=== PATIENT | female | born 1950 | race Caucasian/White ===

== ENCOUNTER 2024-07-29 06:30 | Observation (INO) ==
--- NOTE | 2024-07-04 14:40 | PAT Medication Instructions ---
Medication Instructions Date of Service July 04, 2024 Home Medications cephalexin 500 mg capsule 500 mg PO 3XWK clonazepam 1 mg tablet 0.5 mg PO QAM clonazepam 1 mg tablet 1 mg PO BID duloxetine 60 mg capsule,delayed release 60 mg PO BID hydrochlorothiazide 25 mg tablet 25 mg PO QAM lisinopril 40 mg tablet 40 mg PO QAM meloxicam 15 mg tablet 15 mg PO QAM metformin 500 mg tablet 500 mg PO BID pregabalin 100 mg capsule 100 mg PO TID tizanidine 4 mg capsule 4 mg PO QID Spasms tramadol 100 mg tablet 100 mg PO Q6H insulin glargine 100 unit/mL (3 mL) subcutaneous pen (Lantus Solostar U-100 Insulin) 24 unit subcut QAM mirabegron 50 mg tablet,extended release 24 hr (Myrbetriq) 50 mg PO QAM MEDICATION INSTRUCTIONS: Continue as directed cephalexin 500 mg capsule 500 mg PO 3XWK ASK your surgeon for instructions meloxicam 15 mg tablet 15 mg PO QAM DO NOT take the morning of surgery hydrochlorothiazide 25 mg tablet 25 mg PO QAM lisinopril 40 mg tablet 40 mg PO QAM metformin 500 mg tablet 500 mg PO BID mirabegron 50 mg tablet,extended release 24 hr (Myrbetriq) 50 mg PO QAM Take morning of surgery With a small sip of water, OTHERWISE NOTHING TO EAT OR DRINK AFTER MIDNIGHT: clonazepam 1 mg tablet 0.5 mg PO QAM clonazepam 1 mg tablet 1 mg PO BID duloxetine 60 mg capsule,delayed release 60 mg PO BID pregabalin 100 mg capsule 100 mg PO TID tizanidine 4 mg capsule 4 mg PO QID Spasms tramadol 100 mg tablet 100 mg PO Q6H Take evening before surgery clonazepam 1 mg tablet 1 mg PO BID duloxetine 60 mg capsule,delayed release 60 mg PO BID metformin 500 mg tablet 500 mg PO BID pregabalin 100 mg capsule 100 mg PO TID tizanidine 4 mg capsule 4 mg PO QID Spasms tramadol 100 mg tablet 100 mg PO Q6H Insulin Dependent Diabetic Patients * Test your blood sugar the morning of surgery. * If Blood Sugar is GREATER THAN 150, take HALF of your regular dose of: insulin glargine 100 unit/mL (3 mL) subcutaneous pen (Lantus Solostar U-100 Insulin) 24 unit subcut QAM * If Blood Sugar is LESS THAN 150, DO NOT TAKE ANY: insulin glargine 100 unit/mL (3 mL) subcutaneous pen (Lantus Solostar U-100 Insulin) 24 unit subcut QAM Other Notes If you have any questions please call us at [phone] or [phone] or [phone] or [phone]
--- NOTE | 2024-07-12 12:59 | Anesthesiology Consultation ---
Date of Service July 12, 2024 Assessment & Plan (1) Encounter for pre-operative examination: - Check BSG DOS - Infectious disease screening: Per assessment on 07/12/24- No known recent infectious disease contacts or current infectious disease symptoms. - Outpatient joint assessment: Pt currently scheduled for inpatient pathway. If surgeon requests review for outpatient joint pathway, patient is not recommended candidate for outpatient joint program from anesthesia standpoint based on available information. - Abnormal preop testing: Preop labs note low hgb at 9.4. No comparison levels available and no reported anemia history. Preop CXR notes "Ill-defined right paratracheal/suprahilar opacity seen on the PA view favors summation density. A precautionary CT of the chest recommended to further characterize." Note written to PCP regarding anemia/CXR findings- Awaiting response (Dr. Greene/Alonzo). Patient otherwise acceptable risk for surgery. Chart Review Chart Review: Patient seen in Pre Admission Testing Teaching & Discussion Pre-Anesthesia Teaching/Discussion Notes: Instructed NPO after midnight before surgery,except medications with 15 cc of water. Medication instructions provided according to the PAT guidelines. History Surgery Operation Date: 08/05/24 11:00 Proposed Procedures p Left Reverse Total Shoulder Arthroplasty - Santosh Hall, Height/Weight Height: 5 ft 8 in Weight: 100.7 kg Allergies Allergy/AdvReac Type Severity Reaction Status Date / Time No Known Allergies Allergy Verified 07/04/24 09:38 Medications Home Medications Medication Instructions Recorded Confirmed Last Taken cephalexin 500 mg capsule 500 mg PO 3XWK 04/27/24 07/04/24 Unknown clonazepam 1 mg tablet 0.5 mg PO QAM 04/27/24 07/04/24 Unknown clonazepam 1 mg tablet 1 mg PO BID 04/27/24 07/04/24 Unknown duloxetine 60 mg capsule,delayed 60 mg PO BID 04/27/24 07/04/24 Unknown release hydrochlorothiazide 25 mg tablet 25 mg PO QAM 04/27/24 07/04/24 Unknown lisinopril 40 mg tablet 40 mg PO QAM 04/27/24 07/04/24 Unknown meloxicam 15 mg tablet 15 mg PO QAM 04/27/24 07/04/24 Unknown metformin 500 mg tablet 500 mg PO BID 04/27/24 07/04/24 Unknown pregabalin 100 mg capsule 100 mg PO TID 04/27/24 07/04/24 Unknown tizanidine 4 mg capsule 4 mg PO QID Spasms 04/27/24 07/04/24 Unknown tramadol 100 mg tablet 100 mg PO Q6H 04/27/24 07/04/24 Unknown insulin glargine 100 unit/mL (3 24 unit subcut QAM 07/04/24 07/04/24 Unknown mL) subcutaneous pen (Lantus Solostar U-100 Insulin) mirabegron 50 mg tablet,extended 50 mg PO QAM 07/04/24 07/04/24 Unknown release 24 hr (Myrbetriq) Past Medical History Medical History Anxiety Diabetes mellitus, type 2 Hx: UTI (urinary tract infection) Takes preventative med 3x weekly No current issues Hypertension Neuropathy feet/legs Overactive bladder Rotator cuff arthropathy Sleep apnea No device Spinal stenosis Exercise / Class Metabolic Activity III < 4 Walking/Shop/Light housework Past Family History Family History Aunt Diabetes Grandmother Diabetes Past Surgical History Surgical History History of colonoscopy History of hysterectomy History of total hip arthroplasty left History of total knee replacement right Hx of spinal surgery thoracic unsure of exact levels Past Anesthesia History No Hx of Anesthesia Complications and No Family Hx of Anesthesia Complications History of PONV No Hx of PONV and No Hx of Motion Sickness Social History Smoking Status: Never smoker Do You Dip or Chew Tobacco: No Hx Alcohol Use: No Hx Substance Use: No substance use type: does not use Review of Systems Patient denies chest pain, shortness of breath, fever, chills, cough, wheezing, palpitations. Physical Exam Vital Signs BP 100/65 P 74 TEMP 98.1 SP02 96%RA RESP 18 Physical Full cervical extension range of motion. Full TMJ range of motion. TMD 3 finger breaths Mallampati Score III Dentition: intact, upper left side bridge Lungs: clear throughout to auscultation Cardiac: regular rate and rhythm, no murmurs noted Spine: normal Carotid arteries: negative bruit Extremities: no LE edema Lab Results Anesthesia Preop Results Results Anesthesia Widget: WBC 7.96 K/ul (4.8-10.8) 07/12/24 Hgb 9.4 g/dl (12.0-16.0) L 07/12/24 Hct 28.5 % (37.0-47.0) L 07/12/24 Plt 350 K/uL (130-400) 07/12/24 Na 129 mmol/L (136-145) L 07/12/24 K 4.6 mmol/L (3.5-5.1) 07/12/24 Cl 99 mmol/L (98-107) 07/12/24 CO2 23 mmol/L (21-32) 07/12/24 BUN 28 mg/dl (6-23) H 07/12/24 Creat 0.78 mg/dl (0.6-1.2) 07/12/24 Glucose Level 78 mg/dl (70-99(Fasting)) 07/12/24 PT 10.3 Seconds (9.0-12.0) 07/12/24 PTT 28 Seconds (21-31) 07/12/24 INR 0.9 (0.9-1.1) 07/12/24 HA1c 5.2 % (4.5-5.6) 07/12/24 Blood Type A Negative 07/12/24 Antibody Screen NEGATIVE 07/12/24 Testing Electrocardiogram Date: 07/12/24 NSR with sinus arrhythmia at 64bpm. "Normal ECG" Chest X-Ray Date: 07/12/24 FINDINGS: Partially imaged thoracolumbar spinal fusion hardware. The bones appear grossly intact. Chronic lower thoracic compression deformity. Cardiomediastinal and hilar silhouettes are within normal limits. No pneumothorax, pleural effusion or lobar airspace consolidation. Ill-defined right paratracheal/upper lung opacities seen best on the PA view. Bones of the chest appear grossly intact. IMPRESSION: Ill-defined right paratracheal/suprahilar opacity seen on the PA view favors summation density. A precautionary CT of the chest recommended to further characterize.
--- NOTE | 2024-07-29 06:28 | History & Physical Bridge Note ---
Date of Service July 29, 2024 History & Physical Bridge Note I have examined the patient, reviewed the History & Physical and in the interval since the performance of the History & Physical I have noted the following changes of clinical significance: no changes noted
[~2024-07-29 06:30] MED LIST: BUPIVACAINE 0.5 % 5 MG/1 ML PF 10ML VIAL ONE
[2024-07-29] MEDS ORDERED: PROPOFOL IV EMULSION 10 MG/ML 20 ML VIAL IV ONE (07:08)
[2024-07-29] MEDS ORDERED: MIDAZOLAM HCL 1 MG/ML 2ML VIAL ONE (07:08)
[2024-07-29] MEDS ORDERED: LIDOCAINE 2% 2 ML VIAL/AMP(20MG/ML) INFIL ONE (07:08)
[2024-07-29] MEDS ORDERED: fentaNYL citrate PF 100 MCG/2 ML VIAL ONE (07:08)
[2024-07-29] MEDS: ACETAMINOPHEN 500 MG TAB PO SCH ×2 (07:10→14:43)
[2024-07-29] MEDS: LR 15ML/HR IV SCH (07:10)
[2024-07-29] MEDS ORDERED: PHENYLEPHRINE 100MCG/ML 5ML SYR ONE (07:10)
[2024-07-29] MEDS: GABAPENTIN 300 MG CAP PO SCH (07:11)
[2024-07-29] MEDS: FAMOTIDINE 20 MG TAB PO SCH (07:11)
[2024-07-29] MEDS: LR 60ML/HR IV SCH (07:13)
[2024-07-29] MEDS ORDERED: fentaNYL citrate PF 100 MCG/2 ML VIAL IV PRN (07:16)
[2024-07-29] MEDS ORDERED: ATROPINE SULFATE 0.1 MG/ML 10ML SYR IV PRN (07:16)
[2024-07-29] MEDS ORDERED: ePHEDrine sulfate 50 MG/ML AMP IV PRN (07:16)
[2024-07-29] MEDS ORDERED: ONDANSETRON INJ 2 MG/ML 2 ML VIAL IV PRN ×2 (07:16→11:52)
[2024-07-29] MEDS: dexAMETHasone**PF** 10 MG/ML VIAL IV SCH (07:34)
[2024-07-29] MEDS: TRANEXAMIC ACID 1,000 MG **IV Pre-op IV SCH (07:39)
[2024-07-29] MEDS: ceFAZolin 2000MG 2,000 MG/15 ML SYR IV SCH (07:55)
[2024-07-29] MEDS ORDERED: GLYCOPYRROLATE 0.2 MG/ML VIAL ONE (08:19)
[2024-07-29] MEDS ORDERED: ePHEDrine sulfate 50 MG/5 ML SYR ONE (08:19)
[2024-07-29] MEDS ORDERED: ONDANSETRON INJ 2 MG/ML 2 ML VIAL ONE (08:30)
[2024-07-29] MEDS: ORTHO JOINT ANESTHETIC ONE (08:34)
[2024-07-29] MEDS: ROPIV 0.5% 246mg, Ketorolac 30mg, EPINEPHrine 0.5mg in NSS INFIL SCH (09:00)
[2024-07-29] MEDS: TRANEXAMIC ACID 1,000 MG **IV Intra-op IV SCH (09:08)
--- NOTE | 2024-07-29 09:14 | Operative Report ---
PG Post Operative Report Pre & Post Diagnosis Operation Date: 07/29/24 08:00 Pre-Op Diagnosis: rotator cuff arthropathy of left shoulder with tendinopathy long head of the biceps tendon Post-Op Diagnosis: rotator cuff arthropathy of left shoulder with tendinopathy long head of the biceps tendon I identified the patient and participated in the time-out.: Yes Procedure Operation Date: 07/29/24 08:00 Actual Procedures p Left Reverse Total Shoulder Arthroplasty(Left) with tendinopathy long head of the biceps tendon as a distinct and separate procedure (modifier 59)- Santosh Hall DO Surgeon Santosh Hall DO Fire Eater Silvio Brito PA-C Estimated Blood Loss 150 Findings Consistent with Post-Op Diagnosis Specimens Left humeral head Description of Procedure A CPT code modifier 59: The long head of the biceps tendon was enlarged and inflamed consistent with tendinopathy. A tenodesis was opted. This was a separate and distinct portion of the procedure. For these reasons, a CPT code modifier 59 will be added to this case. Implants used: I used a [employer] Comprehensive reverse total shoulder arthroplasty system with a size 12 press fit micro humeral stem, a +5 thickness humeral tray and a +3 retentive humeral bearing, a 25 mm baseplate with 4 peripheral locking screws, a nd a size 36 mm eccentric glenosphere. Stefanie arrived at [facility] for the above procedure. She was seen in the preoperative holding area and the operative extremity was identified and si gned. She was given a preoperative antibiotic, TXA, and an interscalene nerve block. She was taken back to the operating room, laid on table in supine position, and put under general anesthesia. She was then put into the beachchair position. The shoulder was then prepped and draped in sterile fashion. A timeout was done and the patient and the operative extremity was properly identified. A deltopectoral approach was used. Dissection was taken down through the fascia and the deltoid was retracted laterally and the conjoined tendon was retracted medially. The anterior shoulder was exposed. The biceps groove was opened up and the biceps tendon was examined extensively. The biceps tendon demonstrated enlargement and inflammatory changes consistent with longstanding inflammation in the context of osteoarthritis and cuff arthropathy. The long head of the biceps tendon was then tenodesed to the upper border of the pectoralis major. This was a separate and distinct portion of the procedure. The subscapularis was then directly released off the lesser tuberosity with a peel technique. The inferior capsule was released and the humeral head was dislocated. A canal finding reamer was sent down the center of the humeral canal. Sequential reaming up to a size 12 reamer was done. Off that reamer, a proximal humeral resection guide was placed. The proximal humerus was resected at 135 of inclination and 25 of retroversion. Osteophytes were then removed and the glenoid was exposed. Time was spent doing a complete capsular and labral release. The glenoid guide was then placed in the inferior aspect of the glenoid. A 3.2 mm Steinmann pin was then placed into the glenoid vault at 10 of inclination. The glenoid baseplate was then reamed. The final size 25 mm baseplate was then impacted in the place. 4 peripheral locking screws were placed. Although the boss for completely within the glenoid vault, there was not enough bone quality be on neck to be able to put in a central screw. A 36 mm eccentric glenosphere was then impacted into place. Surrounding soft tissues were then injected with 100 cc an orthopedic pain control cocktail. The proximal humerus was then exposed. Sequential broaching of the humerus up to a size 12 broach was done. Because the glenoid was so medialized from the deformity, I decided to my lateralization of the humeral side. Off that broach a +5 thickness and +3 retentive humeral tray was trialed. The shoulder was then reduced, brought through a full range of motion, and felt to be stable. The shoulder was then dislocated and the broach was removed. The final size 12 micro press-fit humeral stem was then impacted into place. A +3 retentive humeral bearing was then snapped onto a +5 thickness humeral tray. The humeral tray was then impacted onto the humeral stem. The shoulder was once again reduced, brought through a full range of motion, and felt to be stable. Subscapularis with poor quality and unable to be repaired. A dilute betadyne lavage was then done for 3 minutes. The joint was then irrigated with normal saline solution. Hemostasis was obtained. The interval was closed with 2-0 Vicryl suture. The skin was then closed with 2-0 Vicryl and lizett. A Silverlon dressing was placed and the arm was rested in a regular arm sling. She was then extubated and transferred to a hospital bed. She taken to the postanesthesia care unit in stable condition. She tolerated the procedure well. Silvio Brito PA-C, was present for the entire procedure. He was critical for patient positioning, prepping, draping, retraction exposure, wound closure and application of sterile dressing. I attest to the content of the Intraoperative Record and any orders documented therein. Any exceptions are noted below.
--- NOTE | 2024-07-29 10:15 | Anesthesiology Progress Note ---
Date of Service July 29, 2024 Anesthesia Post Procedure Vital Signs Vital Signs: Temp Pulse Resp BP BP Pulse Ox O2 Del Method 07/29/24 10:00 36.4 C L 78 18 124/60 100 Room Air 07/29/24 09:50 78 22 116/55 L 100 Room Air 07/29/24 09:40 75 19 122/55 L 100 Oxymask 07/29/24 09:32 36.4 C L 79 16 124/61 99 Oxymask 07/29/24 06:52 36.3 C L 72 20 108/74 96 Room Air O2 Flow Rate 07/29/24 10:00 07/29/24 09:50 07/29/24 09:40 6 07/29/24 09:32 6 07/29/24 06:52 Pain Intensity Left Shoulder: Pain Intensity: 7 Transfer of Care Handoff Completed per policy Notes Mental Status: alert / awake / arousable Patient Amnestic to Procedure: Yes Nausea / Vomiting: adequately controlled Pain: adequately controlled Airway Patency, RR, SpO2: stable & adequate BP & HR: stable & adequate Hydration State: stable & adequate Anesthetic Complications: no major complications apparent and Pt Satisfied with anesthetic care
--- NOTE | 2024-07-29 10:16 | XRay Report ---
XR shoulder LT min 2V routine CLINICAL HISTORY: Post shoulder surgery COMPARISON: Left shoulder radiograph April 27, 2024. FINDINGS: Alignment of the reverse total left shoulder arthroplasty is anatomic. There is no peripro sthetic fracture or unexpected radiopaque foreign body. There are skin lizett. Left basilar opacity favors atelectasis. There are postoperative findings within the thoracolumbar spine. IMPRESSION: Expected findings following left shoulder arthroplasty. ACT 112: Negative or not required by law. Electronically signed by: Gigi Feldman M.D. 07/29/2024 10:14 AM
--- NOTE | 2024-07-29 10:25 | Anesthesia Procedure Note ---
Anesthesia Procedure Note Peripheral Nerve Block Note Date of procedure: 07/29/24 Indication: Postoperative pain contol Consent: Risk / Benefits Reviewed With: PT / POA / Parent / Guardian, Accepts Plan, Informed Consent Obtained and All Questions Answered Monitors attached: Blood Pressure, CO2, EKG and Pulse Oximetry Oxygen delivery method: Mask Time out completed: Yes Premedication: Other (see anesthesia record) Laterality: Left Position: Supine Surgical Prep: Hand hygeine: Alcohol based hand rub Equipment/Supplies: Cap, Mask, Sterile gloves and Sterile procedures used Skin prep: Chloraprep Block: Interscalene (single shot ) Needle: 22g x 3.5 inch Ultra-santos Ultrasound used: Yes US equipment and supplies: Sterile Gel Anesthetic: 0.5% Bupivicaine (ml) (15) Additives: Other (10 cc exparel) Attempts: 1 Post-procedure: Pt hemodynamically stable and Pt tolerates well
[2024-07-29] MEDS ORDERED: NALOXONE HCL 0.4 MG/1 ML VIAL/CARP IV PRN (11:52)
[2024-07-29] MEDS ORDERED: PHARMACY GLYCEMIC MGMT CONSULT PRN (11:52)
[2024-07-29] MEDS ORDERED: bisacodyL 10 MG SUPP PR PRN (11:52)
[2024-07-29] MEDS ORDERED: METOCLOPRAMIDE HCL INJ 5 MG/ML 2 ML VIAL IV PRN (11:52)
[2024-07-29] MEDS ORDERED: MAGNESIUM HYDROXIDE SUSP 30 ML UDC PO PRN (11:52)
[2024-07-29] MEDS: tiZANidine HCL 4 MG TABLET PO SCH (12:26)
[2024-07-29] MEDS: KETOROLAC TROMETHAMINE 15 MG/ML VIAL IV SCH (14:02)
[2024-07-29] MEDS: PREGABALIN 100 MG CAP PO SCH (14:03)
[2024-07-29] MEDS: BUPIVACAINE LIPOSOME 1.3% 133 MG/10 ML VIAL ONE (14:11)
--- NOTE | 2024-07-29 14:16 | Pharmacy Report ---
Pharmacy Glycemic Short Note 2 - Date of Service July 29, 2024 - Glycemic Short BSG Results (Last 24 hours): 07/29/24 07/29/24 06:52 09:34 POC Glucose 129 H 139 H OUTPATIENT ANTIDIABETIC REGIMEN: * Lantus 24 units SQ Q AM * metformin 500mg PO BID HbA1c: 5.2% on 07/12/24 ASSESSMENT: * 74 year old female admitted today for left reverse total shoulder arthroplasty. Pharmacy has been consulted postop for glycemic management. * Preop BSG was 139mg/dL and post op was 200mg/dL. She did receive 10mg iv dexamethasone preop. * Patient reportedly took her last dose of Lantus 24 units the morning of 07/28, so Lantus 24 units x 1 now and then QAM was ordered. * No further steroids have been ordered and patient is well controlled on just basal insulin at home, so conservative bolus insulin was initiated with a weight based dosing with a stress between 1 and 2. PLAN FOR INPATIENT GLYCEMIC CONTROL: * Hold outpatient diabetes medications * Basal insulin * Lantus 24 units SQ x 1 then QAM * Bolus insulin * NovoLog per scale ACHS or Q6hrs while NPO * Goal Range: Low 110 mg/dL - High 140 mg/dL * Correction Factor: 30 mg/dL/unit * Nutritional / Prandial insulin per carb ratio of 1 unit per 10 grams CHO consumed
[2024-07-29] MEDS: INSULIN ASPART PER UNIT CHARGE SC SCH (14:43)
[2024-07-29] MEDS: ceFAZolin 1000MG 1,000 MG/7.5 ML SYR IV SCH (15:58)
[2024-07-29] MEDS: LANTUS PER UNIT CHARGE SC SCH (15:58)
[2024-07-29] MEDS ORDERED: Nursing to Pharmacy Communication SCH (16:00)
[2024-07-29] MEDS ORDERED: COUGH DROP (SUGAR FREE) LOZ 24 LOZ/1 BOX BUCCAL PRN (16:19)
[2024-07-29] MEDS: COUGH DROP (SUGAR FREE) LOZ 24 LOZ/1 BOX BUCCAL ONE (17:33)
[2024-07-29] MEDS: DULoxetine HCL 60 MG CAP PO SCH (20:17)
[2024-07-29] MEDS: SENNA 8.6 MG TAB PO SCH (20:17)
[2024-07-29] MEDS: clonazePAM 1 MG TAB PO SCH (20:17)
[2024-07-29] MEDS: DOCUSATE SODIUM 100 MG CAP PO SCH (20:17)
[2024-07-29] MEDS ORDERED: metFORMIN HCL 500 MG TAB PO SCH (21:00)
[2024-07-30] MEDS: HYDROmorphone INJ 0.5 MG/0.5 ML SYR IV PRN (03:39)
[2024-07-30] MEDS ORDERED: LR 15ML/HR IV SCH (06:00)
--- NOTE | 2024-07-30 06:49 | Orthopedic Progress Note ---
Date of Service July 30, 2024 Assessment & Plan (1) Status post reverse total replacement of left shoulder: Overall she is doing fairly well. She is not having much pain in the left shoulder. She will be seen by physical therapy today for ambulation and range of motion exercises. The nursing staff can change her dressing after physical therapy. She can be discharged to home later today. She will follow-up with orthopedics in 2 weeks. Dwayne Watts was seen and examined at bedside this morning. Overall she is doing very well. She is not having much pain in the left shoulder. She has been up and ambulating to the bathroom. She has no complaints.. Review of Systems All systems reviewed & are unremarkable except as noted in HPI & below. Physical Exam On physical exam of the left shoulder, the dressing is clean and dry. She is wearing her sling as instructed. She has active motion of her hand and her wrist.. Results & Data Results & Data Laboratory Results . Diagnostic Findings Postoperative x-rays of the left shoulder show the prosthesis to be in anatomic alignment without any evidence of fracture, dislocation, or loosening.. PG Care Time/CCT Total # of Minutes Spent Total Time Spent with Patient: Total time spent is greater than 50% in coordination of care (as documented) at patient's floor/unit and/or counseling patient: Coding Level of Care Code 30801 Post Operative Follow-Up Diagnoses Status post reverse total replacement of left shoulder Z96.612
--- NOTE | 2024-07-30 06:50 | Discharge Summary ---
Date of Service July 30, 2024 Principal Diagnosis Same as "Discharge Diagnosis" noted below under Discharge Instructions. Discharge Exam On physical exam of the left shoulder, the dressing is clean and dry. She is wearing her sling as instructed. She has active motion of her hand and her wrist.. Discharge Data Procedures Performed Operation Date: 07/29/24 08:00 Actual Procedures p Left Reverse Total Shoulder Arthroplasty(Left) - Santosh Hall DO Ordered Studies 07/29/24 05:00 US - OR guided needle placemen Routine Hospital Course (1) Status post reverse total replacement of left shoulder: On July 29, 2024 Stefanie arrived at [facility] and underwent a left reverse shoulder replacement without complication. She had a general anesthetic and a left interscalene nerve block. Postoperatively, she was placed in a sling and transferred to the general orthopedic floors. Her hospital course was uneventful. On postop day #1, the vital signs were stable and her pain was well-controlled. She was able to participate well with physical therapy doing ambulation and range of motion exercises. She was then discharged to home. She will follow-up with orthopedics in 2 weeks. PG Care Time/CCT Total # of Minutes Spent Total Time Spent with Patient: Total time spent is greater than 50% in coordination of care (as documented) at patient's floor/unit and/or counseling patient: Discharge Plan Discharge Items Patient Disposition: Home - Self-Care Reason For Visit: Left Shoulder Arthritis Discharge Diagnosis: Left reverse shoulder replacement Activity: Per Instructions section Non-emergency contact: Surgeon Call non-emergency contact if: your wound has increased redness and your wound has increased drainage Follow-up/Referrals: Rhina Greene DO [Primary Care Provider] - Diet: Regular Addtl Attending Provider Instructions: Activity and Therapy Recommendations: * Stay in your sling for 6 weeks * You may use your hand and wrist while in the sling. You can remove your sling to shower and to change her clothes. * You can do gentle range of motion exercises at times with your elbow. * We will hold off on therapy for 6 weeks. We will start therapy after seeing Dr. Hall for the 6-week postop visit and getting x-rays. Medications: * Narcotic You will likely be sent home from the hospital with a prescription for the narcotic pain medication that worked best throughout your stay. * Cefadroxil -take the antibiotic twice a day for 10 days to help prevent infection. * Other medications may be prescribed for specific circumstances. If you have any questions, please call the office at . * Resume previous home medications unless otherwise instructed Dressing Care: Leave the Silverlon dressing in place for 7 days. After 7 days you may remove the dressing. If the incision is not draining then you may leave the lizett open to air. If there is a little bit of drainage or if the lizett are getting stuck on your clothing then cover the incision with a dry dressing. The lizett will be removed at your 2 week follow-up appointment. Showering: You may shower with the Silverlon dressing in place. Do not let the shower spray hit the dressing directly. Pat the Silverlon dressing dry. If the dressing becomes wet underneath, then simply remove the dressing. Keep the incision dry until you are 7 days out from the day of surgery. After 7 days you may remove the Silverlon dressing and shower with the lizett exposed. Let soapy water run over the lizett and pat them dry. Do not scrub or soak the incision. Diet: You may resume your previous diet. Things To Watch For: * Drainage from the incision site that occurs more than one week after your surgery. * Increased redness at the incision site. * Fever above 102 degrees Fahrenheit. * Unusual chest pain or shortness of breath. * Call [facility] at with any of the above problems Follow-Up Visit: Follow-up with Dr. Hall's office 2-3 weeks after your day of surgery. We will remove your lizett and answer any questions. If you have any additional questions or concerns, Dr Hall is usually in the office at the same time and will be available An appointment was probably scheduled when you [facility]. If you have any questions call More detailed instructions as well as Frequently Asked Questions were provided in a folder by our office when you signed-up for surgery. Please review these instructions when you get home. If you have any further questions or concerns, please feel free to call the office at [phone] Pending Studies at Discharge: No Stand-Alone Forms: My [facility], Smoking Cessation Medications and DC Order Prescriptions: New cefadroxil 500 mg capsule 500 mg PO BID 10 Days Qty: 20 0RF oxycodone 5 mg tablet 5 mg PO Q6H PRN (Reason: pain) Qty: 30 0RF Continued meloxicam 15 mg tablet 15 mg PO QAM duloxetine 60 mg capsule,delayed release(DR/EC) 60 mg PO BID pregabalin 100 mg capsule 100 mg PO TID tizanidine 4 mg capsule 4 mg PO QID clonazepam 1 mg tablet 1 mg PO BID Patient Comments: at lunch at dinner clonazepam 1 mg tablet 0.5 mg PO QAM tramadol 100 mg tablet 100 mg PO Q6H hydrochlorothiazide 25 mg tablet 25 mg PO QAM metformin 500 mg tablet 500 mg PO BID lisinopril 40 mg tablet 40 mg PO QAM insulin glargine [Lantus Solostar U-100 Insulin] 100 unit/mL (3 mL) Insulin Pen 24 unit SUBCUT QAM mirabegron [Myrbetriq] 50 mg Tablet Extended Release 24 Hr 50 mg PO QAM bupropion HCl 150 mg tablet extended release 24 hr 150 mg PO QAM Discontinued cephalexin 500 mg capsule 500 mg PO [id number] Discharge Orders: Discharge Order (Routine); Ordered 07/30/24 Ordered By: Santosh Hall Admission Data Admit Date/Time: 07/29/24 09:36 Attending Provider: Santosh Hall Admit Provider: Santosh Hall Primary Care Provider: Rhina Greene
[2024-07-30] MEDS: clonazePAM 0.5 MG TAB PO SCH (08:41)
[2024-07-30] MEDS: buPROPion XL 150 MG TABCR PO SCH (08:42)
[2024-07-30] MEDS: lisinopril 40 MG TAB PO SCH (08:42)
[2024-07-30] MEDS: MULTIVITAMIN TAB PO SCH (08:42)
[2024-07-30] MEDS: hydroCHLOROthiazide 25 MG TAB PO SCH (08:42)
[2024-07-30] MEDS ORDERED: MIRABEGRON ER 25 MG TAB PO SCH (09:00)
[2024-07-30] MEDS ORDERED: LANTUS PER UNIT CHARGE SQ SCH (09:00)
[2024-07-30] MEDS: VIBEGRON 75 MG TAB PO SCH (14:29)
[2024-07-30] MEDS: oxyCODONE HCL IR 5 MG TAB (IMMEDIATE RELEASE) PO PRN (14:29)
--- NOTE | 2024-07-31 14:05 | Orthopedic Progress Note ---
Date of Service July 31, 2024 Assessment & Plan (1) Status post reverse total replacement of left shoulder: Overall she is improving. She worked better today with physical therapy. She is waiting for a hemiwalker. Her is with her in the room today. They are ready for discharge today. She can be discharged to home later today. She will follow-up with orthopedics in 2 weeks. Dwayne Watts was seen and examined at bedside this morning. Overall she is feeling much better. She is not having much pain in the left shoulder. She worked well today with physical therapy. She has no complaints.. Review of Systems All systems reviewed & are unremarkable except as noted in HPI & below. Physical Exam On physical exam of the left shoulder, the dressing is clean and dry. She is wearing her sling as instructed. She is neurovascular intact.. Results & Data Results & Data Laboratory Results . Diagnostic Findings . PG Care Time/CCT Total # of Minutes Spent Total Time Spent with Patient: Total time spent is greater than 50% in coordination of care (as documented) at patient's floor/unit and/or counseling patient: Coding Level of Care Code 55594 Post Operative Follow-Up Diagnoses Status post reverse total replacement of left shoulder Z96.612
[2024-08-01 07:28] VITALS: BP 158/82; PULSE 85; RESP 18; TEMP 98.2; O2SAT 94
--- NOTE | 2024-08-01 10:22 | Orthopedic Progress Note ---
Date of Service August 01, 2024 Assessment & Plan (1) Status post reverse total replacement of left shoulder: (2) Aftercare following left shoulder joint replacement surgery: Plan 74-year-old woman POD# 3 s/p left reverse total shoulder replacement, doing well overall. Pain is well-controlled. Medically stable. Patient is neurologically intact. Again, she did have to stay an extra night since she could not have the hemiwalker delivered to her house over the weekend, but it has arrived this morning and is at bedside. Plan: 1. DVT prophylaxis w/ early ambulation. Encourage elbow, wrist, digit AROM. 2. PT/OT as tolerated. Sling on at all times, including while sleeping, but may come off to shower and dress. 3. Pain control doing well with current pain regimen. 4. Disposition - plan to D/C home w/ self-care later today once cleared by PT/OT. 5. F/u as scheduled (08/23/2024 at 10:15 AM with Silvio Brito PA-C) for first post-op visit. Subjective Patient is POD# 3 s/p left reverse total shoulder arthroplasty by Dr. Hall on 07/29/2024. Patient says her pain is well-controlled this morning. Denies CP, SOB, N/V, L UE paresthesia. Patient had to stay another night since her hemiwalker had not been delivered. Apparently they do not deliver them over the weekend. However, it did arrive this morning and is at bedside. She is ready to return home today. Review of Systems All systems reviewed & are unremarkable except as noted in HPI & below. Physical Exam GENERAL: AA&Ox3, NAD. Pleasant, affect is calm. Upon arriving to the room, the patient was being assisted from a sitting upright in bed position and to the edge of the bed, with assistance from the physical therapist. Sling donned to LUE, well-fitting. RESPIRATORY: Normal respiratory effort with no signs of distress. CHEST/AXILLA: Chest movement symmetrical. No deformities noted. CARDIOVASCULAR: No edema noted. SKIN: Ester, warm and dry. MS/EXTREMITY: Left shoulder Silverlon dressing c/d/i; no saturation noted. + wrist/elbow AROM. Median/Ulnar/Radial nerve distributions intact to sensory/motor. Radial pulse intact, 2+. Results & Data Results & Data Laboratory Results . Diagnostic Findings . PG Care Time/CCT Total # of Minutes Spent Total Time Spent with Patient: Total time spent is greater than 50% in coordination of care (as documented) at patient's floor/unit and/or counseling patient: Coding [place] [address] SUB INP/OBS CARE 07/02MIN Patient Type Established History Expanded Problem Focused Exam Problem Focused Medical Decision Making Low Complexity Diagnoses Status post reverse total replacement of left shoulder Z96.612 Aftercare following left shoulder joint replacement surgery Z47.1; Z96.612
--- NOTE | 2024-08-01 11:18 | Pharmacy Report ---
Pharmacy Glycemic Short Note 2 - Date of Service August 01, 2024 - Glycemic Short BSG Results (Last 24 hours): 07/31/24 07/31/24 07/31/24 11:26 17:03 20:25 POC Glucose 164 H 81 136 H 08/01/24 07:33 POC Glucose 135 H OUTPATIENT ANTIDIABETIC REGIMEN: * Lantus 24 units SQ Q AM * metformin 500mg PO BID HbA1c: 5.2% on 07/12/24 ASSESSMENT: 08/01 * Patient received a total of 34 units of insulin yesterday (24 units were basal and 10 units were bolus). * Fasting BSG was in goal range this morning (135mg/dL) so Lantus 24 units SQ QAM will be continued. * BSGs yesterday were 095-934-61-136mg/dL. 81mg/dL at supper time yesterday likely due to overcorrection so loosened CR starting with breakfast today. 07/29 * 74 year old female admitted today for left reverse total shoulder arthroplasty. Pharmacy has been consulted postop for glycemic management. * Preop BSG was 139mg/dL and post op was 200mg/dL. She did receive 10mg iv dexamethasone preop. * Patient reportedly took her last dose of Lantus 24 units the morning of 07/28, so Lantus 24 units x 1 now and then QAM was ordered. * No further steroids have been ordered and patient is well controlled on just basal insulin at home, so conservative bolus insulin was initiated with a weight based dosing with a stress between 1 and 2. PLAN FOR INPATIENT GLYCEMIC CONTROL: * Hold outpatient diabetes medications * Basal insulin * Lantus 24 units SQ x 1 then QAM * Bolus insulin * NovoLog per scale ACHS or Q6hrs while NPO * Goal Range: Low 110 mg/dL - High 140 mg/dL * Correction Factor: 35 mg/dL/unit * Nutritional / Prandial insulin per carb ratio of 1 unit per 15 grams CHO consumed
== END 2024-08-01 13:00 | disposition home or self-care (01) ==
LOC: PACUINP 06:30 → ASU 06:30 → 3N 13:48

== ENCOUNTER 2025-03-03 08:59 | Observation (INO) ==
--- NOTE | 2025-01-17 10:07 | PAT Medication Instructions ---
Medication Instructions Date of Service January 17, 2025 Home Medications clonazepam 1 mg tablet 0.5 mg PO QAM clonazepam 1 mg tablet 1 mg PO BID duloxetine 60 mg capsule,delayed release 60 mg PO BID hydrochlorothiazide 25 mg tablet 25 mg PO QAM lisinopril 40 mg tablet 40 mg PO QAM meloxicam 15 mg tablet 15 mg PO QAM metformin 500 mg tablet 500 mg PO BID pregabalin 100 mg capsule 100 mg PO TID tramadol 100 mg tablet 100 mg PO QID insulin glargine 100 unit/mL (3 mL) subcutaneous pen (Lantus Solostar U-100 Insulin) 24 unit subcut QAM mirabegron 50 mg tablet,extended release 24 hr (Myrbetriq) 50 mg PO QAM bupropion HCl 150 mg 24 hr tablet, extended release 150 mg PO QAM cephalexin 500 mg capsule 500 mg PO DAILY maintenance for UTI's Continue as directed cephalexin 500 mg capsule 500 mg PO DAILY maintenance for UTI's ASK your surgeon for instructions meloxicam 15 mg tablet 15 mg PO QAM DO NOT take the morning of surgery hydrochlorothiazide 25 mg tablet 25 mg PO QAM lisinopril 40 mg tablet 40 mg PO QAM metformin 500 mg tablet 500 mg PO BID mirabegron 50 mg tablet,extended release 24 hr (Myrbetriq) 50 mg PO QAM Take morning of surgery With a small sip of water, OTHERWISE NOTHING TO EAT OR DRINK AFTER MIDNIGHT: clonazepam 1 mg tablet 0.5 mg PO QAM clonazepam 1 mg tablet 1 mg PO BID duloxetine 60 mg capsule,delayed release 60 mg PO BID pregabalin 100 mg capsule 100 mg PO TID tramadol 100 mg tablet 100 mg PO QID bupropion HCl 150 mg 24 hr tablet, extended release 150 mg PO QAM Take evening before surgery clonazepam 1 mg tablet 1 mg PO BID duloxetine 60 mg capsule,delayed release 60 mg PO BID metformin 500 mg tablet 500 mg PO BID pregabalin 100 mg capsule 100 mg PO TID tramadol 100 mg tablet 100 mg PO QID Insulin Dependent Diabetic Patients * Test your blood sugar the morning of surgery * If Blood Sugar is GREATER THAN 150, take HALF of your regular dose of: insulin glargine 100 unit/mL (3 mL) subcutaneous pen (Lantus Solostar U-100 Insulin) (12 units) * If Blood Sugar is LESS THAN 150, DO NOT TAKE ANY: insulin glargine 100 unit/mL (3 mL) subcutaneous pen (Lantus Solostar U-100 Insulin) * Other Notes If you have any questions please call us at [phone] or [phone] or [phone] or [phone]
--- NOTE | 2025-01-24 11:56 | Anesthesiology Consultation ---
Date of Service January 24, 2025 Assessment & Plan (1) Encounter for pre-operative examination: Plan - awaiting PCP clearance, Dr. Rhina Greene. - anemia: H&H 03/07. PCP clearance will be needed-patient made aware, denied questions or concerns. Surgeon's office made aware. - check BSG am DOS. - Outpatient joint assessment: Patient is currently scheduled for inpatient pathway. If re-evaluated and patient/surgeon requests outpatient pathway, patient is not advised candidate for outpatient joint program from anesthesia standpoint. Chart Review Chart Review: Pending: Refer to Additional Notes / Consult section and Patient seen in Pre Admission Testing Teaching & Discussion Pre-Anesthesia Teaching/Discussion Notes: Instructed NPO after midnight before surgery, except medications with 15 cc of water. Medication instructions provided according to the PAT guidelines. History Surgery Operation Date: 03/03/25 07:00 Proposed Procedures p Right Reverse Total Shoulder Arthroplasty - Santosh Hall, Height/Weight Height: 5 ft 8 in Weight: 102.9 kg Allergies Allergy/AdvReac Type Severity Reaction Status Date / Time No Known Allergies Allergy Verified 01/24/25 10:00 Medications Home Medications Medication Instructions Recorded Confirmed Last Taken clonazepam 1 mg tablet 0.5 mg PO QAM 04/27/24 01/24/25 07/28/24 06:00 clonazepam 1 mg tablet 1 mg PO BID 04/27/24 01/24/25 07/29/24 06:00 duloxetine 60 mg capsule,delayed 60 mg PO BID 04/27/24 01/24/25 07/29/24 06:00 release hydrochlorothiazide 25 mg tablet 25 mg PO QAM 04/27/24 01/24/25 07/28/24 06:00 lisinopril 40 mg tablet 40 mg PO QAM 04/27/24 01/24/25 07/28/24 06:00 meloxicam 15 mg tablet 15 mg PO QAM 04/27/24 01/24/25 07/26/24 metformin 500 mg tablet 500 mg PO BID 04/27/24 01/24/25 07/28/24 21:00 pregabalin 100 mg capsule 100 mg PO TID 04/27/24 01/24/25 07/29/24 06:00 tramadol 100 mg tablet 100 mg PO QID 04/27/24 01/24/25 07/29/24 06:00 insulin glargine 100 unit/mL (3 24 unit subcut QAM 07/04/24 01/24/25 07/28/24 06:00 mL) subcutaneous pen (Lantus Solostar U-100 Insulin) mirabegron 50 mg tablet,extended 50 mg PO QAM 07/04/24 01/24/25 07/28/24 06:00 release 24 hr (Myrbetriq) bupropion HCl 150 mg 24 hr tablet, 150 mg PO QAM 07/29/24 01/24/25 07/28/24 06:00 extended release cephalexin 500 mg capsule 500 mg PO DAILY maintenance for 01/17/25 01/24/25 Unknown UTI's Past Medical History Medical History Anxiety Diabetes mellitus, type 2 IDDM Hx: UTI (urinary tract infection) Takes preventative med daily No current issues Hypertension controlled, stable per pt Neuropathy feet/legs Overactive bladder Rotator cuff arthropathy Sleep apnea No device Spinal stenosis Patient denies h/o stroke, seizures, heart attack, heart failure, blood clots/DVTs or blood transfusions. Exercise / Class Metabolic Activity III < 4 Walking/Shop/Light housework (uses electric chair for stairs, denies chest discomfort or shortness of breath with usual activities) Past Family History Family History Aunt Diabetes Grandmother Diabetes Past Surgical History Surgical History History of colonoscopy History of hysterectomy History of total hip arthroplasty left History of total knee replacement right Hx of spinal surgery early , x4 surgeries in total, unsure of exact levels "but more lower back; one to remove a cyst, others for fusions" Status post reverse total replacement of left shoulder (07/29/24) Past Anesthesia History No Hx of Anesthesia Complications and No Family Hx of Anesthesia Complications History of PONV No Hx of PONV and No Hx of Motion Sickness Social History Smoking Status: Never smoker Do You Dip or Chew Tobacco: No Hx Alcohol Use: No Hx Substance Use: No substance use type: does not use Review of Systems Patient denies chest pain, shortness of breath, dyspnea on exertion, reflux, fever, chills, cough, wheezing, or palpitations. Physical Exam Vital Signs Vitals BP 130/77 P 81 TEMP 97.8 SP02 95% on RA RESP 18 Physical Patient resting comfortably in chair in no acute distress, alert and oriented, responding appropriately throughout visit Full cervical extension range of motion without pain TMD 3.5 finger breadths Mallampati Score 2 Dentition: upper caps/crowns and bridge, denies chipped or loose teeth or bridges Lungs: normal respiratory effort. Good air movement, clear throughout to auscultation, no adventitious breath sounds Cardiac: regular rate and rhythm, no murmurs noted Carotid arteries: negative bruit bilat Lab Results Anesthesia Preop Results Results Anesthesia Widget: WBC 8.16 K/ul (4.8-10.8) 01/24/25 Hgb 9.7 g/dl (12.0-16.0) L 01/24/25 Hct 30.1 % (37.0-47.0) L 01/24/25 Plt 251 K/uL (130-400) 01/24/25 Na 133 mmol/L (136-145) L 01/24/25 K 4.2 mmol/L (3.5-5.1) 01/24/25 Cl 100 mmol/L (98-107) 01/24/25 CO2 25 mmol/L (21-32) 01/24/25 BUN 28 mg/dl (6-23) H 01/24/25 Creat 0.71 mg/dl (0.6-1.2) 01/24/25 Glucose Level 92 mg/dl (70-99(Fasting)) 01/24/25 PT 9.8 Seconds (9.0-12.0) 01/24/25 PTT 29 Seconds (21-31) 01/24/25 INR 0.9 (0.9-1.1) 01/24/25 HA1c 6.3 % (4.5-5.6) H 01/24/25 Blood Type A Negative 01/24/25 Antibody Screen NEGATIVE 01/24/25 Testing Electrocardiogram Date: 07/12/24 NSR with sinus arrhythmia, rate 64 bpm Chest X-Ray Date: 07/22/24 No acute cardiopulmonary disease.
--- NOTE | 2025-03-02 07:26 | History & Physical Report ---
Date of Service March 02, 2025 Assessment & Plan (1) Right rotator cuff tear arthropathy: We will proceed with a right reverse shoulder arthroplasty. Postoperatively, she will be placed in a sling and will be kept overnight in the hospital for postop medical management. She plans to go to outpatient therapy at [facility] after discharge. History of Present Illness Chief Complaint: Cuff tear arthropathy right shoulder. Primary Care Provider: Rhina Greene Stefanie is a pleasant 74-year-old female who was dealing with bilateral shoulder pain. I did a left reverse shoulder arthroplasty on her 6 months ago. She has done fairly well with that. Unfortunately, she is now dealing with right shoulder pain. She is having trouble doing activities away from her body or up overhead. X-rays include but exam have shown cuff tear arthropathy of the right shoulder. After failing conservative treatment, she has elected proceed with a right reverse shoulder arthroplasty. Allergies Allergy/AdvReac Type Severity Reaction Status Date / Time No Known Allergies Allergy Verified 01/24/25 10:00 Home Medications Medication Instructions Recorded Confirmed Type clonazepam 1 mg tablet 0.5 mg PO QAM 04/27/24 01/24/25 History clonazepam 1 mg tablet 1 mg PO BID 04/27/24 01/24/25 History duloxetine 60 mg capsule,delayed 60 mg PO BID 04/27/24 01/24/25 History release hydrochlorothiazide 25 mg tablet 25 mg PO QAM 04/27/24 01/24/25 History lisinopril 40 mg tablet 40 mg PO QAM 04/27/24 01/24/25 History meloxicam 15 mg tablet 15 mg PO QAM 04/27/24 01/24/25 History metformin 500 mg tablet 500 mg PO BID 04/27/24 01/24/25 History pregabalin 100 mg capsule 100 mg PO TID 04/27/24 01/24/25 History tramadol 100 mg tablet 100 mg PO QID 04/27/24 01/24/25 History insulin glargine 100 unit/mL (3 24 unit subcut QAM 07/04/24 01/24/25 History mL) subcutaneous pen (Lantus Solostar U-100 Insulin) mirabegron 50 mg tablet,extended 50 mg PO QAM 07/04/24 01/24/25 History release 24 hr (Myrbetriq) bupropion HCl 150 mg 24 hr tablet, 150 mg PO QAM 07/29/24 01/24/25 History extended release cephalexin 500 mg capsule 500 mg PO DAILY maintenance for 01/17/25 01/24/25 History UTI's Past Med/Surg History Problem List (Updated 03/02/25 @ 07:26 by Santosh Hall DO) Right rotator cuff tear arthropathy Rotator cuff arthropathy of left shoulder Medical History Hx: UTI (urinary tract infection) Takes preventative med daily No current issues Spinal stenosis Overactive bladder Diabetes mellitus, type 2 IDDM Anxiety Neuropathy feet/legs Hypertension controlled, stable per pt Sleep apnea No device Rotator cuff arthropathy Surgical History Status post reverse total replacement of left shoulder (07/29/24) History of colonoscopy History of hysterectomy History of total hip arthroplasty left History of total knee replacement right Hx of spinal surgery early , x4 surgeries in total, unsure of exact levels "but more lower back; one to remove a cyst, others for fusions" Family History Aunt Diabetes Grandmother Diabetes Social History Smoking Status: Never smoker Second Hand Exposure: Yes (hx growing up); Do You Dip or Chew Tobacco: No; Hx Alcohol Use: No Hx Substance Use: No Preferred Language: Mauritian Communication Ability: Effective Viscosity Worker Required: No Beliefs That Will Affect Care: None Current Living Situation: Spouse Feels Safe at Home: Yes Assistive Devices: Glasses and Other Review of Systems All systems reviewed & are unremarkable except as noted in HPI & below. Physical Exam On physical exam of the right shoulder, she has decreased range of motion and weakness throughout.. Constitutional WD/WN, vitals as above Eyes PERRL, conjunctivae normal, anicteric sclerae ENMT external ear and nose normal, oropharynx normal Neck trachea midline, no thyromegaly Respiratory normal respiratory effort Cardiovascular RRR, no murmur, no edema Gastrointestinal (Abdomen) normal bowel sounds, soft, nontender, no hepatosplenomegaly Psychiatric A+Ox3, euthymic affect Results & Data Results & Data Laboratory Results . Diagnostic Findings . PG Care Time/CCT Total # of Minutes Spent Total Time Spent with Patient: Total time spent is greater than 50% in coordination of care (as documented) at patient's floor/unit and/or counseling patient: Coding Level of Care Code None Diagnoses Right rotator cuff tear arthropathy M75.101; M12.811
[2025-03-03] MEDS ORDERED: LIDOCAINE 2% 2 ML VIAL/AMP(20MG/ML) INFIL ONE (09:51)
[2025-03-03] MEDS ORDERED: MIDAZOLAM HCL 1 MG/ML 2ML VIAL ONE (09:51)
[2025-03-03] MEDS ORDERED: ONDANSETRON INJ 2 MG/ML 2 ML VIAL ONE (09:52)
[2025-03-03] MEDS ORDERED: PROPOFOL IV EMULSION 10 MG/ML 20 ML VIAL IV ONE (09:52)
--- NOTE | 2025-03-03 10:16 | History & Physical Bridge Note ---
Date of Service March 03, 2025 History & Physical Bridge Note I have examined the patient, reviewed the History & Physical and in the interval since the performance of the History & Physical I have noted the following changes of clinical significance: no changes noted
[2025-03-03] MEDS: FAMOTIDINE 20 MG TAB PO SCH (10:18)
[2025-03-03] MEDS: GABAPENTIN 300 MG CAP PO SCH (10:18)
[2025-03-03] MEDS: ACETAMINOPHEN 500 MG TAB PO SCH ×2 (10:18→16:30)
[2025-03-03] MEDS: LR 60ML/HR IV SCH (10:22)
[2025-03-03] MEDS: LR 15ML/HR IV SCH (10:41)
[2025-03-03] MEDS: dexAMETHasone**PF** 10 MG/ML VIAL IV SCH (10:42)
[2025-03-03] MEDS: TRANEXAMIC ACID 1,000 MG **IV Pre-op IV SCH (10:52)
[2025-03-03] MEDS ORDERED: ATROPINE SULFATE 0.1 MG/ML 10ML SYR IV PRN (11:06)
[2025-03-03] MEDS ORDERED: ONDANSETRON INJ 2 MG/ML 2 ML VIAL IV PRN ×2 (11:06→15:07)
[2025-03-03] MEDS ORDERED: WATER, STERILE FOR INJ 10 ML VIAL ONE (11:39)
[2025-03-03] MEDS ORDERED: ePHEDrine sulfate 50 MG/5 ML SYR ONE (11:39)
[2025-03-03] MEDS ORDERED: GLYCOPYRROLATE 0.2 MG/ML VIAL ONE (11:46)
[2025-03-03] MEDS ORDERED: PHENYLEPHRINE HCL 10 MG/ML VIAL ONE (11:46)
[2025-03-03] MEDS: ROPIV 0.5% 246mg, Ketorolac 30mg, EPINEPHrine 0.5mg in NSS INFIL SCH (12:37)
--- NOTE | 2025-03-03 12:37 | Operative Report ---
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 Postoperative diagnosis: Cuff tear arthropathy right shoulder with tendinopathy long head of biceps tendon I identified the patient and participated in the time-out.: Yes Procedure Operation Date: 03/03/25 11:00 Procedure: Right reverse shoulder arthroplasty with open biceps tenodesis as a distinct and separate procedure (modifier 59) Surgeon Santosh Hall DO Registered [employer]or Silvio Brito PA-C Estimated Blood Loss 250 Findings Consistent with Post-Op Diagnosis Specimens Right humeral head Description of Procedure A CPT code modifier 59: The long head of the biceps tendon was enlarged and inflamed consistent with tendinopathy. A tenodesis was opted. This was a separate and distinct portion of the procedure. For these reasons, a CPT code modifier 59 will be added to this case. Implants used: I used a [employer]omet Comprehensive reverse total shoulder arthroplasty system with a size 11 press fit micro humeral stem, a +6 offset humeral tray and a +3 retentive humeral bearing, a 25 mm small augment baseplate with a 6.5 mm central screw and 3 peripheral locking screws, and a size 36 mm eccentric glenosphere. Stefanie arrived at [facility] for the above procedure. She was seen in the preoperative holding area and the operative extremity was identified and signed. She was given a preoperative antibiotic, TXA, and an interscalene nerve block. She was taken back to the operating room, laid on table in supine position, and put under general anesthesia. She was then put into the beachchair position. The shoulder was then prepped and draped in sterile fashion. A timeout was done and the patient and the operative extremity was properly identified. A deltopectoral approach was used. Dissection was taken down through the fascia and the deltoid was retracted laterally and the conjoined tendon was retracted medially. The anterior shoulder was exposed. The biceps groove was opened up and the biceps tendon was examined extensively. The biceps tendon demonstrated enlargement and inflammatory changes consistent with longstanding inflammation in the context of osteoarthritis and cuff arthropathy. The long head of the bic eps tendon was then tenodesed to the upper border of the pectoralis major. This was a separate and distinct portion of the procedure. The subscapularis was then directly released off the lesser tuberosity with a peel technique. The inferior capsule was released and the humeral head was dislocated. A canal finding reamer was sent down the center of the humeral canal. Sequential reaming up to a size 11 reamer was done. Off that reamer, a proximal humeral resection guide was placed. The proximal humerus was resected at 135 of inclination and 25 of retroversion. Osteophytes were then removed and the glenoid was exposed. Time was spent doing a complete capsular and labral release. A Jose [employer] signature guide was used. Once the signature guide was in appropriate placement, a 3.2 mm Steinmann pin was placed into the glenoid vault. The glenoid baseplate was then reamed. The final size 25 mm large augment baseplate was then impacted in the place. A 6.5 mm central screw was then placed followed by 3 peripheral locking screws. A 36 mm eccentric glenosphere was then impacted into place. Surrounding soft tissues were then injected with 100 cc an orthopedic pain control cocktail. The proximal humerus was then exposed. Sequential broaching of the humerus up to a size 11 broach was done. Off that broach a +6 offset and +3 retentive humeral tray was trialed. The silvia ulder was then reduced, brought through a full range of motion, and felt to be stable. The shoulder was then dislocated and the broach was removed. The final size 11 micro press-fit humeral stem was then impacted into place. A +3 retentive humeral bearing was then snapped onto a +6 offset humeral tray. The humeral tray was then impacted onto the humeral stem. The shoulder was once again reduced, brought through a full range of motion, and felt to be stable. The subscapularis was poor quality and unable to be repaired. A dilute betadyne lavage was then done for 3 minutes. The joint was then irrigated with normal saline solution. Hemostasis was obtained. The interval was closed with 2-0 Vicryl suture. The skin was then closed with 2-0 Vicryl and Carmelo Zipline. A Silverlon dressing was placed and the arm was rested in a regular arm sling. She was then extubated and transferred to a hospital bed. She taken to the postanesthesia care unit in stable condition. She tolerated the procedure well. Silvio Brito PA-C, was present for the entire procedure. He was critical for patient positioning, prepping, draping, retraction exposure, wound closure and application of sterile dressing. I attest to the content of the Intraoperative Record and any orders documented therein. Any exceptions are noted below.
[2025-03-03] MEDS: ORTHO JOINT ANESTHETIC ONE (12:38)
--- NOTE | 2025-03-03 13:24 | XRay Report ---
XR shoulder RT min 2V routine CLINICAL HISTORY: Post shoulder surgery COMPARISON: None FINDINGS: Right shoulder prosthesis shows no hardware complication. There is expected soft tissue ga s. IMPRESSION: Unremarkable postoperative exam. ACT 112: Negative or not required by law. Electronically signed by: Glenn Rashid M.D. 03/03/2025 1:23 PM
--- NOTE | 2025-03-03 13:52 | Anesthesiology Progress Note ---
Date of Service March 03, 2025 Anesthesia Post Procedure Vital Signs Vital Signs: Temp Pulse Resp BP Pulse Ox O2 Del Method O2 Flow Rate 03/03/25 13:40 85 14 142/63 H 93 Room Air 03/03/25 13:30 82 15 134/63 95 Room Air 03/03/25 13:20 84 15 145/69 H 100 Oxymask 4 03/03/25 13:10 81 16 137/66 100 Oxymask 6 03/03/25 13:02 36.0 C L 77 10 L 142/69 H 100 Oxymask 6 03/03/25 09:33 36.4 C 80 20 149/77 H 94 Room Air Pain Intensity Right Shoulder: Pain Intensity: 5 Transfer of Care Handoff Completed per policy Notes Mental Status: alert / awake / arousable Patient Amnestic to Procedure: Yes Nausea / Vomiting: adequately controlled Pain: adequately controlled Airway Patency, RR, SpO2: stable & adequate BP & HR: stable & adequate Hydration State: stable & adequate Anesthetic Complications: no major complications apparent
[2025-03-03] MEDS ORDERED: HYDROmorphone INJ 0.5 MG/0.5 ML SYR IV PRN (15:07)
[2025-03-03] MEDS ORDERED: PHARMACY GLYCEMIC MGMT CONSULT PRN (15:07)
[2025-03-03] MEDS ORDERED: METOCLOPRAMIDE HCL INJ 5 MG/ML 2 ML VIAL IV PRN (15:07)
[2025-03-03] MEDS ORDERED: NALOXONE HCL 0.4 MG/1 ML VIAL/CARP IV PRN (15:07)
[2025-03-03] MEDS ORDERED: MAGNESIUM HYDROXIDE SUSP 30 ML UDC PO PRN (15:07)
[2025-03-03] MEDS: BUPIVACAINE LIPOSOME 1.3% 133 MG/10 ML VIAL ONE (15:27)
--- NOTE | 2025-03-03 15:27 | Pharmacy Report ---
Pharmacy Glycemic Short Note 2 - Date of Service March 03, 2025 - Glycemic Short BSG Results (Last 24 hours): 03/03/25 03/03/25 09:49 13:35 POC Glucose 124 H 166 H OUTPATIENT ANTIDIABETIC REGIMEN: * Lantus 24 units SC qAM * Metformin 500 mg PO BIDM HbA1c: 6.3% (01/24/25) ASSESSMENT: * LH is a 75 year old female POD #0 s/p right reverse total shoulder * Received 10 mg IV dexamethasone in OR * Preop blood sugar of 124 mg/dL, postop blood sugar of 166 mg/dL PLAN FOR INPATIENT GLYCEMIC CONTROL: * Hold outpatient oral diabetes medications * Basal insulin * Lantus 25 units SC x 1 to cover steroids * Bolus insulin * NovoLog per scale ACHS or Q6hrs while NPO * Goal Range: Low 110 mg/dL - High 140 mg/dL * Correction Factor: 20 mg/dL/unit * Nutritional / Prandial insulin per carb ratio of 1 unit per 6 grams CHO consumed
[2025-03-03] MEDS ORDERED: GLUCOSE 10 TAB/TUBE PO PRN (15:30)
[2025-03-03] MEDS ORDERED: GLUCOSE 40% GEL 15 GM TUBE PO PRN (15:30)
[2025-03-03] MEDS ORDERED: DEXTROSE 50% 50 ML SYRINGE IV PRN (15:30)
[2025-03-03] MEDS ORDERED: CARBOHYDRATES FOR HYPOGLYCEMIA PO PRN (15:30)
[2025-03-03] MEDS ORDERED: GLUCAGON FOR INJ 1 MG VIAL SQ PRN (15:30)
[2025-03-03] MEDS: SODIUM CHLORIDE 0.9% 1,000 ML IV SCH (15:33)
[2025-03-03] MEDS: PREGABALIN 100 MG CAP PO SCH (15:34)
[2025-03-03] MEDS: KETOROLAC TROMETHAMINE 15 MG/ML VIAL IV SCH (16:28)
[2025-03-03] MEDS: LANTUS PER UNIT CHARGE SC ONE ×2 (17:11→21:28)
[2025-03-03] MEDS: INSULIN ASPART PER UNIT CHARGE SC SCH (17:11)
[2025-03-03] MEDS: DOCUSATE SODIUM 100 MG CAP PO SCH (21:27)
[2025-03-03] MEDS: SENNA 8.6 MG TAB PO SCH (21:27)
[2025-03-03] MEDS: clonazePAM 1 MG TAB PO SCH (21:27)
[2025-03-04 07:20] VITALS: RESP 16
[2025-03-04] MEDS: hydroCHLOROthiazide 25 MG TAB PO SCH (08:15)
[2025-03-04] MEDS: MULTIVITAMIN TAB PO SCH (08:16)
[2025-03-04] MEDS: VIBEGRON 75 MG TAB PO SCH (08:16)
[2025-03-04] MEDS ORDERED: NON-FORMULARY MEDICATION (Insulin Glargine [Lantus Solostar U-100 Insulin] 100 unit/mL (3 SQ SCH (09:00)
[2025-03-04] MEDS ORDERED: clonazePAM 0.5 MG TAB PO SCH (09:00)
--- NOTE | 2025-03-04 09:01 | Orthopedic Progress Note ---
Date of Service March 04, 2025 Assessment & Plan (1) Status post reverse arthroplasty of right shoulder: Overall she is doing fairly well. She is not having much pain in the right shoulder. She will be seen by physical therapy today for ambulation and range of motion exercises. She can be discharged to home later today. She will follow-up with orthopedics in 2 weeks. Dwayne Watts was seen and examined at bedside this morning. Overall she is doing fairly well. She is not having much pain in the right shoulder. She has been up and ambulating to the bathroom. She has no complaints.. Review of Systems All systems reviewed & are unremarkable except as noted in HPI & below. Physical Exam On physical exam of the right shoulder, the dressing is clean and dry. She is wearing her sling as instructed. The nerve block is still in effect and she still has numbness in her hand. . Results & Data Results & Data Laboratory Results . Diagnostic Findings Postoperative x-rays of the right shoulder show the prosthesis to be in anatomic alignment without any evidence of fracture, screws, or loosening.. PG Care Time/CCT Total # of Minutes Spent Total Time Spent with Patient: Total time spent is greater than 50% in coordination of care (as documented) at patient's floor/unit and/or counseling patient: Coding Level of Care Code 30315 Post Operative Follow-Up Diagnoses Status post reverse arthroplasty of right shoulder Z96.611
[2025-03-04 11:16] VITALS: BP 143/74; PULSE 82; TEMP 97.9; O2SAT 92
== END 2025-03-04 12:55 | disposition home health service (06) ==
LOC: 3E 08:59 → ASU 08:59